=== PATIENT | female | born 1980 | race Hispanic/Latino ===

== ENCOUNTER → 2021-07-23 | Outpatient (CLI) | payer OTHER ==
[~2021-07-23] MED LIST: PHENTERMINE HCL30 MG PO
== END ==
LOC: US 14:38 → MERGE 14:38
PROVIDERS: ATTEND Family Medicine
DX: S60.032D Contusion of left middle finger without damage to nail, subsequent encounter (principal); S60.042D Contusion of left ring finger without damage to nail, subsequent encounter
CPT/HCPCS: 76882